=== PATIENT | male | born 2000 | race Caucasian/White ===

== ENCOUNTER 2020-11-07 11:38 | Emergency (ER) | payer BC, SELFPAY ==
--- NOTE | ~2020-11-07 | XR_ITS ---
EXAMINATION: XR chest 2V EXAM DATE: 11/07/2020 13:11 INDICATION: Cough for few days. Has a positive for COVID 11/07/2020 TECHNIQUE: Frontal and lateral projections of the chest obtained and reviewed. There is no prior kaden dy for comparison. FINDINGS: Patchy ill-defined right perihilar acute airspace disease, nonspecific pneumonia. Left bessie g is clear. No pneumothorax or pleural effusion. Cardiomediastinal silhouette is normal. There are no osseous abnormalities identified. There are no osseous abnormalities identified. IMPRESSION: Patchy right perihilar pneumonia. Reviewed, dictated and finalized at location A.
[2020-11-07 11:55] VITALS: BP 128/68; PULSE 80; RESP 18; TEMP 37.2; O2SAT 98
[2020-11-07 12:14] VITALS: BP 128/68; PULSE 80; RESP 18; TEMP 37.2; O2SAT 98
--- NOTE | 2020-11-07 13:34 | ED.GENADULT ---
HPI - General Adult General Chief complaint: Upper Respiratory Infection Stated complaint: fever,swollen tonsils Source: patient Mode of arrival: ambulatory Limitations: no limitations History of Present Illness HPI narrative: Patient presents for evaluation of cough for the last 5 days. He indicates cough is productive of brown sputum. He developed a fever last night with temperature of 104.5 ?F. He also experienced chills at that time. He took some Mucinex and states that the medication made him vomit. He denies any shortness of breath, chest pain, nausea, vomiting, diarrhea. No recent sick contacts to his knowledge. He vapes but does not use cigarettes. No history of Covid. He has not received COVID vaccination. He slept most of the day yesterday. He has attempted to remain hydrated with pedialyte. Related Data Allergies Allergy/AdvReac Type Severity Reaction Status Date / Time No Known Allergies Allergy Verified 11/07/20 12:14 Review of Systems Review of Systems: CONSTITUTIONAL: Reports fever and chills EYES: Denies visual changes, redness, or discharge. ENT: Denies rhinorrhea, congestion, sore throat, or otalgia. CARDIOVASCULAR: Denies chest pain, palpitations, or edema. RESPIRATORY: Reports productive cough of brown sputum. Denies SOB. GASTROINTESTINAL: Reports one episode of vomiting. Denies abdominal pain, nausea, or diarrhea. GENITOURINARY: Denies dysuria or hematuria. SKIN: Denies rash or itching. MUSCULOSKELETAL: Denies back pain, joint pain, or myalgia. NEUROLOGIC: Denies headache, numbness, dizziness, or weakness. PSYCHIATRIC: Denies anxiety or depression. [facility] Past Medical History Medical History (Updated 11/07/20 @ 13:40 by LISA Lubin, ) No pertinent past medical history Surgical History Surgical History (Updated 11/07/20 @ 13:37 by LISA Lubin, JOSLYN) No pertinent past surgical history Family History Family History Mother No pertinent past medical history Social History Social History (Updated 11/07/20 @ 13:37 by LISA Lubin, JOSLYN) Tobacco type: e-cigarettes/vaping Alcohol intake: current Alcohol use details: weekends Substance use: never Gender identity (if verbalized by the patient): Male Sexual Orientation (if Verbalized by the Patient): Straight or Heterosexual Spiritual care concerns: No Exam Narrative: GENERAL: Well-appearing, well-nourished, and in no acute distress. HEAD: Normocephalic, atraumatic. EYES: PERRLA and EOMI. ENT: Nares clear, no rhinorrhea or epistaxis. Mucous membranes moist. Oropharynx without tonsillar hypertrophy exudate or other lesions. Bilateral TMs pearly luther nonbulging NECK: Supple. No adenopathy or masses. No carotid bruits or JVD CHEST: Clear to auscultation. No respiratory distress. No wheezes rales or rhonchi HEART: Regular rate and rhythm. No murmur heard. Normal peripheral pulses. ABDOMEN: Soft, nontender, nondistended, normal active bowel sounds. EXTREMITIES: Normal range of motion. No edema. SKIN: Warm, dry, no rash. NEURO: No focal deficits. Alert and oriented x3. PSYCH: Normal mood and affect. Course Course Emergency Course: This is a 20-year-old male who presented with complaints of respiratory symptoms. Rapid Covid was negative. He had a chest x-ray that showed patchy right perihilar pneumonia. To be consistent with his Covid or perhaps he has a superimposed bacterial infection. Will treat with oral antibiotics. Patient advised to increase hydration and follow-up this week for further evaluation and treatment. She return for worsening symptoms. Patient agreed with plan of care. Vital Signs Vital signs: Vital Signs Temperature 37.2 C 11/07/20 11:55 Pulse Rate 80 11/07/20 11:55 Respiratory Rate 18 11/07/20 11:55 Blood Pressure 128/68 11/07/20 11:55 Pulse Oximetry 98 11/07/20 11:55 Temperature 37.2
== END 2020-11-07 13:46 | disposition home or self-care (01) ==
PROVIDERS: Emergency Provider Nurse Practitioner
DX: U07.1 COVID-19 (principal); J12.82 Pneumonia due to coronavirus disease 2019
CPT/HCPCS: 71046; 87081; 87426; 87880; 99213; C9803; G0463